=== PATIENT | female | born 1965 | race Caucasian/White ===

== ENCOUNTER 2018-01-19 22:52 | Inpatient (IN) | payer OTHER ==
[2018-01-19] MEDS ORDERED: ONDANSETRON 4 MG INJ IV (23:30)
[2018-01-19] MEDS ORDERED: NACL 0.9% 3 ML SYG IV (23:30)
[2018-01-19] MEDS ORDERED: HYDROCODONE/APAP (5/325) TAB PO (23:30)
[2018-01-19] MEDS: SOD CHLORIDE 0.9% 1,000 ML IV (23:56)
[2018-01-20] MEDS: ACETAMINOPHEN 325 MG TAB PO ×2 (01:38→09:07)
[2018-01-20 05:21] LABS: ADD MAN DIFF? NO
[2018-01-20 05:29] LABS: BASOPHILS % 0.2 % (0.0-2.0); EOSINOPHILS # 0.3 10^3/ul (0.0-0.5); EOSINOPHILS % 2.6 % (0.0-7.0); HEMATOCRIT 33.9 % (37.0-47.0); HEMOGLOBIN 10.9 g/dl (12.0-16.0); LYMPHOCYTES # 1.6 10^3/ul (0.8-2.9); LYMPHOCYTES % 13.6 % (15.0-51.0); MEAN CORPUSCULAR HEMOGLOBIN 28.3 pg (29.0-33.0); MEAN CORPUSCULAR HGB CONC 32.2 g/dl (32.0-37.0); MEAN CORPUSCULAR VOLUME 88.1 fl (82.0-101.0); MEAN PLATELET VOLUME 10.4 fl (7.4-10.4); MONOCYTE # 0.6 10^3/ul (0.3-0.9); NEUTROPHIL # 8.9 10^3/ul (1.6-7.5); NEUTROPHILS % 78.3 % (39.0-77.0); PLATELET COUNT 296 10^3/UL (140-415); RED BLOOD COUNT 3.85 10^6/ul (4.20-5.40); RED CELL DISTRIBUTION WIDTH 12.3 % (11.5-14.5)
[2018-01-20 05:29] LABS: WHITE BLOOD COUNT 11.4 10^3/ul (4.8-10.8)
[2018-01-20 05:48] LABS: ALANINE AMINOTRANSFERASE 26 IU/L (13-69); ALBUMIN 3.3 g/dl (3.3-4.9); ALBUMIN/GLOBULIN RATIO 1.26; ALKALINE PHOSPHATASE 63 IU/L (42-121); ANION GAP 9 (5-13); ASPARTATE AMINO TRANSFERASE 15 IU/L (15-46); BILIRUBIN,INDIRECT 0.5 mg/dl (0-1.1); BILIRUBIN,TOTAL 0.5 mg/dl (0.2-1.3); BLOOD UREA NITROGEN 9 mg/dl (7-20); CALCIUM 8.4 mg/dl (8.4-10.2); CARBON DIOXIDE 26 mmol/L (21-31); CHLORIDE 108 mmol/L (97-110); CREATININE 0.56 mg/dl (0.44-1.00); Estimated GFR > 60 mL/min (>60); GLUCOSE 96 mg/dl (70-220); MAGNESIUM 1.9 mg/dl (1.7-2.5); PHOSPHORUS 3.6 mg/dl (2.5-4.9); POTASSIUM 3.7 mmol/L (3.5-5.1); SODIUM 143 mmol/L (135-144); TOTAL PROTEIN 5.9 g/dl (6.1-8.1)
[2018-01-20 07:03] LABS: ADD UMIC YES; UR ASCORBIC ACID NEGATIVE (NEGATIVE); UR BACTERIA FEW /HPF (NONE SEEN); UR BILIRUBIN (Dip) NEGATIVE (NEGATIVE); UR BLOOD (Dip) NEGATIVE (NEGATIVE); UR CLARITY CLEAR (CLEAR); UR COLOR STRAW (YELLOW); UR GLUCOSE (Dip) NEGATIVE (NEGATIVE); UR KETONES (Dip) NEGATIVE (NEGATIVE); UR LEUKOCYTE ESTERASE (Dip) 2+ Leu/ul (NEGATIVE); UR NITRITE (Dip) NEGATIVE (NEGATIVE); UR RBC 1 /HPF (0-5); UR TOTAL PROTEIN (Dip) NEGATIVE (NEGATIVE); UR UROBILINOGEN (Dip) NEGATIVE (NEGATIVE); UR WBC 39 /HPF (0-5)
[2018-01-20] MEDS: FAMOTIDINE 20 MG TAB PO (08:28)
[2018-01-20] MEDS: CEFTRIAXONE 1 GM/50 ML (PMX) 50 ML IVPB ×2 (08:30→20:32)
[2018-01-20] MEDS: ENOXAPARIN 40 MG/0.4 ML SYG SC (08:31)
[2018-01-20] MEDS: SOD CHLORIDE 0.9% 1,000 ML IV ×2 (10:09→20:37)
[2018-01-20] MEDS: SENNA/DOCUSATE NA (8.6MG/50MG) TAB PO (17:00)
[2018-01-20] MEDS: LACTOBACILLUS RHAMNOSUS CAP PO (20:32)
[2018-01-20] MEDS: DOCUSATE SODIUM 100 MG CAP PO (20:51)
[2018-01-21 05:39] LABS: ADD MAN DIFF? NO
[2018-01-21 05:43] LABS: WHITE BLOOD COUNT 6.3 10^3/ul (4.8-10.8)
[2018-01-21 05:43] LABS: BASOPHILS % 0.5 % (0.0-2.0); EOSINOPHILS # 0.4 10^3/ul (0.0-0.5); EOSINOPHILS % 5.6 % (0.0-7.0); HEMATOCRIT 35.2 % (37.0-47.0); HEMOGLOBIN 11.5 g/dl (12.0-16.0); LYMPHOCYTES # 2.4 10^3/ul (0.8-2.9); LYMPHOCYTES % 38.7 % (15.0-51.0); MEAN CORPUSCULAR HEMOGLOBIN 28.8 pg (29.0-33.0); MEAN CORPUSCULAR HGB CONC 32.7 g/dl (32.0-37.0); MEAN CORPUSCULAR VOLUME 88.2 fl (82.0-101.0); MEAN PLATELET VOLUME 10.5 fl (7.4-10.4); MONOCYTE # 0.4 10^3/ul (0.3-0.9); MONOCYTES % 6.3 % (0.0-11.0); NEUTROPHIL # 3.1 10^3/ul (1.6-7.5); NEUTROPHILS % 48.6 % (39.0-77.0); PLATELET COUNT 310 10^3/UL (140-415); RED BLOOD COUNT 3.99 10^6/ul (4.20-5.40); RED CELL DISTRIBUTION WIDTH 12.7 % (11.5-14.5)
[2018-01-21 06:22] LABS: ALANINE AMINOTRANSFERASE 25 IU/L (13-69); ALBUMIN 3.4 g/dl (3.3-4.9); ALBUMIN/GLOBULIN RATIO 1.03; ALKALINE PHOSPHATASE 68 IU/L (42-121); ANION GAP 14 (5-13); ASPARTATE AMINO TRANSFERASE 22 IU/L (15-46); BILIRUBIN,INDIRECT 0.3 mg/dl (0-1.1); BILIRUBIN,TOTAL 0.3 mg/dl (0.2-1.3); BLOOD UREA NITROGEN 9 mg/dl (7-20); CALCIUM 8.8 mg/dl (8.4-10.2); CARBON DIOXIDE 24 mmol/L (21-31); CHLORIDE 110 mmol/L (97-110); CREATININE 0.52 mg/dl (0.44-1.00); Estimated GFR > 60 mL/min (>60); GLUCOSE 97 mg/dl (70-220); SODIUM 148 mmol/L (135-144); TOTAL PROTEIN 6.7 g/dl (6.1-8.1)
[2018-01-21 06:30] LABS: HEMOGLOBIN A1C 5.5 % (0-5.9)
[2018-01-21] MEDS: LACTOBACILLUS RHAMNOSUS CAP PO (08:06)
[2018-01-21] MEDS: CEFTRIAXONE 1 GM/50 ML (PMX) 50 ML IVPB (08:06)
[2018-01-21] MEDS: FAMOTIDINE 20 MG TAB PO (08:06)
[2018-01-21] MEDS: DOCUSATE SODIUM 100 MG CAP PO (08:06)
[2018-01-21] MEDS: ENOXAPARIN 40 MG/0.4 ML SYG SC (08:08)
[2018-01-21] MEDS: SENNA/DOCUSATE NA (8.6MG/50MG) TAB PO (08:08)
== END 2018-01-21 17:30 | disposition home or self-care (01) | DRG 690 ==
LOC: 2NE 22:52
DX: N12 Tubulo-interstitial nephritis, not specified as acute or chronic (principal); K21.9 Gastro-esophageal reflux disease without esophagitis; F32.9 Major depressive disorder, single episode, unspecified; K29.50 Unspecified chronic gastritis without bleeding
CPT/HCPCS: 74018; 80053; 81001; 83036; 83735; 84100; 85025; 87086; 87338